=== PATIENT | male | born 1955 | race Caucasian/White ===

== ENCOUNTER 2016-10-19 05:54 | Observation (INO) | payer BC, SELFPAY ==
[~2016-10-19 05:54] MED LIST: ALEVE220 MG PO; ASA5GR PO; ASAB PO; ASABAYER PO; BACDS PO; BETAP120 PO; BION TEARS OPH; BRILINTA90 MG PO; COZ50 PO; GLUCOPHXR PO; GLUCPH PO; GLUCXL10 PO; HCTZ50B PO; HYDROCHLOROT50 MG PO; IMDUR30 PO; INTRAOCULAR EYE INJ IO; KDUR20 PO; KLOR-CON M2020 MEQ PO; L20 PO; LEVEMFLXPN SC; LIPITOR40 PO; LISINOPRIL40 MG PO; LOP100 PO; LOP50 PO; NITROBID2 % TOP; NITROQUICK0.4 MG; NITROSTAT0.4 MG SL; NORV5 PO; PLAVIX PO; PRAVACHOL40 MG PO; PRIN10 PO; SINEX NASAL SPRAY; X5 PO; ZOCOR40 PO
[2016-10-19 07:09] LABS: CALCIUM, SERUM 8.9 MG/DL (8.5-10.4); CHLORIDE, SERUM 106 MMOL/L (96-112); CO2 (CARBON DIOXIDE) 28 MMOL/L (24-34); CREATININE 0.81 MG/DL (0.70-1.30); GFR AFRICAN AMERICAN 111 ML/MIN (>=60); GFR NON AFRICAN AMERICAN 96 ML/MIN (>=60); GLUCOSE, SERUM 129 MG/DL (60-99); SODIUM, SERUM 142 MMOL/L (135-148)
[2016-10-19 07:10] LABS: BUN (BLOOD UREA NITROGEN) 12 MG/DL (6-23)
[2016-10-19 07:56] LABS: BASOPHILS 0.2 %; BASOPHILS ABSOLUTE 0.01 10/3/uL (0.0-0.16); EOSINOPHILS 5.6 %; EOSINOPHILS ABSOLUTE 0.35 10/3/uL (0.0-0.53); HEMATOCRIT 32.5 % (40.0-51.0); HEMOGLOBIN 10.8 g/dL (13.6-17.8); IMMATURE GRANULOCYTES 0.2 %; IMMATURE GRANULOCYTES ABSOLUTE 0.01 10/3/uL (0.0-0.11); LYMPHOCYTES 30.9 %; LYMPHOCYTES ABSOLUTE 1.92 10/3/uL (0.67-4.30); MEAN CORPUS HGB CONC 33.2 g/dL (32.0-36.0); MEAN PLATELET VOLUME 9.5 fL (9.2-13.0); MONOCYTES 14.5 %; NEUTROPHILS 48.6 %; NEUTROPHILS ABSOLUTE 3.02 10/3/uL (2.02-8.40); PLATELET COUNT 210 10/3/uL (150-400); RBC DISTRIBUTION WIDTH 14.4 % (12.0-16.0); RED CELL COUNT 3.73 10/6/uL (4.7-6.1); WHITE BLOOD CELLS 6.2 10/3/uL (4.5-10.5)
[2016-10-19 07:57] LABS: MANUAL DIFF NO %; MEAN CORPUSCULAR VOLUME 87.1 fL (80-100)
[2016-10-20] MEDS ORDERED: LOP25 PO (09:29)
== END 2016-10-20 09:55 | disposition home or self-care (01) ==
LOC: CORLMH 05:54 → SSU1 06:08
PROVIDERS: Internal Medicine Cardiovascular Disease
DX: I49.3 Ventricular premature depolarization (principal); I25.10 Atherosclerotic heart disease of native coronary artery without angina pectoris; E78.00 Pure hypercholesterolemia, unspecified; E11.51 Type 2 diabetes mellitus with diabetic peripheral angiopathy without gangrene; I48.0 Paroxysmal atrial fibrillation; Z95.1 Presence of aortocoronary bypass graft; Z82.49 Family history of ischemic heart disease and other diseases of the circulatory system; Z82.3 Family history of stroke; Z80.1 Family history of malignant neoplasm of trachea, bronchus and lung; Z87.891 Personal history of nicotine dependence; Z88.5 Allergy status to narcotic agent; Z88.8 Allergy status to other drugs, medicaments and biological substances; Z79.82 Long term (current) use of aspirin; Z79.02 Long term (current) use of antithrombotics/antiplatelets; Z79.899 Other long term (current) drug therapy
CPT/HCPCS: 80048; 82962; 85025; 85347; 93005; 93654; 96374; 96376; A9270-GY; C1732; C1769; C1781; C1894; G0378; J1170; J2720; J3010

== ENCOUNTER 2016-12-09 10:23 | Inpatient (IN) | payer BC ==
--- NOTE | ~2016-12-09 | CN ---
Consultation Report [facility] [address] [place]. [address] NAME: MO CARUSO JR : 53 STATUS : ADM Genoveva PAT#: [id number] AGE: 61 ADM/REG DATE : 12/09/16 MR#: [id number] REPORT SERV DATE: 12/09/16 DICTATED BY: JORGE KARIMI DATE: 12/09/16 REPORT STATUS : Draft TRANSCRIBED BY: BEA DATE: 12/09/16 CONSULTATION DATE OF CONSULTATION: 12/09/2016 REASON FOR CONSULTATION: Bradycardia. PRIMARY STEAM DISTRIBUTION SUPERVISOR: Ryan Huitron M.D., Ph.D, F.A.C.C. HISTORY OF PRESENT ILLNESS: Mr. Caruso is a pleasant, 61-year-old gentleman with an extensive cardiovascular history including coronary artery disease status post CABG (2008), peripheral vascular disease, status post right BKA in 2007, PAF status post ablation in 2008, diabetes, hypertension, and very frequent PVCs, status post recent PVC ablation by electrophysiology (10/19/2016), maintained on metoprolol up until last week , at which point in time sotalol 80 mg p.o. b.i.d. was added to his regimen. He states that over the past several days and most noticeably in the past day, he has developed significant dizziness as well as decreased energy and fatigue. He has noticed that his heart rate is low and he can feel it. He has been taking metoprolol with sotalol as per instructions EP office as of last week , reportedly in response to findings on a Holter monitor he recently completed following his 12/01/2016 visit in EP office. He otherwise does complain of atypical chest pains in the center of his chest. He recently had an angiogram on 07/2016 that showed patent grafts. He has no other complaints. PAST MEDICAL HISTORY: As above. SOCIAL HISTORY: The patient lives at home with his family. FAMILY HISTORY: Noncontributory for premature cardiovascular disease. ALLERGIES: 1. CHLORPROMAZINE. 2. DIAZEPAM. 3. MORPHINE. 4. CODEINE. HOME MEDICATIONS: 1. Tylenol. 2. Norvasc. 3. Refresh eye drops. 4. Aspirin. 5. Lipitor. 6. Plavix. 7. Glucotrol. 8. Imdur. Consultation Report [facility] [address] [place]. [address] NAME: MO CARUSO JR : 53 STATUS : ADM Genoveva PAT#: [id number] AGE: 61 ADM/REG DATE : 12/09/16 MR#: [id number] REPORT SERV DATE: 12/09/16 DICTATED BY: JORGE KARIMI DATE: 12/09/16 REPORT STATUS : Draft TRANSCRIBED BY: BEA DATE: 12/09/16 9. Lisinopril. 10.Metformin. 11.Lopressor. 12.Nitrostat p.r.n. 13.Sotalol. REVIEW OF SYSTEMS: As above, all other systems otherwise. PHYSICAL EXAMINATION: VITAL SIGNS: Blood pressure 156/80, pulse ranging from but currently in the 60s and in sinus rhythm with temperature 97.9. GENERAL: Well developed, well nourished, no acute distress. NEURO: Awake, alert and oriented x3; no focal deficits, appropriate mood. HEENT: Moist mucous membranes, anicteric sclerae, no nasal discharge. NECK: No JVD, no carotid bruit. LUNGS: Clear to auscultation bilaterally, no wheezes, rales or rhonchi. CV: Regular rate and rhythm, frequent ectopy, normal S1/S2, 2/6 systolic murmur at the left chest. No rubs or gallops. ABD: Soft, non-tender, non-distended, no rebound or guarding. EXT: No pitting edema, normal distal pulses. Status post right BKA, otherwise warm, dry, and no edema. SKIN: Warm, dry and intact; no rash. PERTINENT TEST FINDINGS: Admission EKG with sinus rhythm, ventricular bigeminy, nonspecific ST-T changes. Telemetry with sinus rhythm in the 60s with occasional PVCs. Creatinine 0.8, hemoglobin 10.2, troponin less than 0.02, potassium 4.1. IMPRESSION AND PLAN: Mr. Caruso is a pleasant 61-year-old man with the history as detailed above who presents with dizziness and fatigue in the setting of recent addition of sotalol 80 mg p.o. b.i.d. to his cardiovascular regimen resulting in sinus bradycardia. His heart rates has since improved, however, they are ranging up and down right now from the 40s up to 60s. I believe he is simply demonstrating intolerance to sotalol 80 mg p.o. b.i.d. in addition to the metoprolol 25 mg p.o. b.i.d. Therefore, I will discontinue metoprolol at this time with plans to resume sotalol at regular dose of 80 mg p.o. b.i.d. tomorrow morning so long as his heart rates are stable and above 70 beats per minute. With regard to his chest pains, his 1st set of enzymes are negative, he also had a recent angiogram that demonstrated no patent grafts. Further workup for this, given these findings, will be deferred pending changes in clinical status if any. TACOS/BEA Jorge Consultation Report [address] [place]. [address] NAME: TONIAMOAshwini SHIELDSRAQUEL : 53 STATUS : ADM Genoveva PAT#: [id number] AGE: 61 ADM/REG DATE : 12/09/16 MR#: [id number] REPORT SERV DATE: 12/09/16 DICTATED BY: JORGE KARIMI DATE: 12/09/16 REPORT STATUS : Draft TRANSCRIBED BY: BEA DATE: 12/09/16 MD Belén / [id number] CC: MD Moses Yi II, M.D.
--- NOTE | ~2016-12-09 | HP ---
History And Physical [place] [id number] [facility] [place]. [address] NAME: MO RANDALL JR : 53 STATUS : ADM Genoveva PAT#: [id number] AGE: 61 ADM/REG DATE : 12/09/16 MR#: [id number] REPORT SERV DATE: 12/09/16 DICTATED BY: HERLINDA MURILLO DATE: 12/09/16 REPORT STATUS : Draft TRANSCRIBED BY: MODRishi DATE: 12/09/16 DATE OF ADMISSION: 12/09/2016 CARDIOLOGY: Dr. Casey and Dr. Cabral. CHIEF COMPLAINT: Nausea and chest pain. HISTORY OF PRESENT ILLNESS: The patient is a very pleasant 61-year-old white male, who has a complicated past cardiac history. He has a history of CAD and CABG and then in 04/2016, he had a drug-eluting stent placed. He also has a history of pretty significant PVCs as many as 43 per cent of his beats. He actually underwent ablation procedure in September [address] Cabral. He was also placed on sotalol prior to that. After the ablation, the sotalol was stopped and he was continued on his metoprolol. He states over the last 24 hours, he has had a heart rate periodically in the 30s. He has had nausea with some gagging and he has had chest pain, substernally on the left. He actually went to Dr. Casey's office yesterday, had an EKG, in the first one, his heart rate was in the 30s; in the second, it was in his 50s. He was told to observe it overnight. He states he suffered all night with chest pain on the left side as well as nausea and his heart rate continued to be low. Finally today, he had a friend bring him to the emergency department after he had an ambulance check his heart rate and it was found to be 38. He has had no fevers or chills. He has had no actual emesis. He has gagged. He has not had any diarrhea or abdominal pain. PAST MEDICAL HISTORY: 1. CAD with history of CABG and drug-eluting stent. 2. Multiple PVCs, status post ablation in September. 3. Peripheral arterial disease with a right BKA and angioplasty. 4. Hypertension. 5. Type 2 diabetes. 6. Macular degeneration and blindness. 7. Paroxysmal atrial fibrillation. 8. Morbid obesity. 9. Hyperlipidemia. PAST SURGICAL HISTORY: He has had a 1. CABG procedure. 2. Maze procedure. 3. Right shoulder procedure. 4. Ablation. 5. Right BKA. SOCIAL HISTORY: He is . He has not smoked in 26 years. He does not drink any alcohol, and he is wheelchair bound but also uses a prosthetic. ALLERGIES: 1. CODEINE. 2. COMPAZINE. History And Physical [address] [address] NAME: MO RANDALL JR : 53 STATUS : ADM Genoveva PAT#: [id number] AGE: 61 ADM/REG DATE : 12/09/16 MR#: [id number] REPORT SERV DATE: 12/09/16 DICTATED BY: HERLINDA MURILLO DATE: 12/09/16 REPORT STATUS : Draft TRANSCRIBED BY: BEA DATE: 12/09/16 3. MORPHINE. 4. DIAZEPAM. 5. HYDROCODONE. FAMILY HISTORY: Positive for CAD. HOME MEDICATIONS: Reviewed and attached in the MAR. REVIEW OF SYSTEMS: Full 10-point review of systems obtained. Pertinent positives are mentioned in the HPI. PHYSICAL EXAMINATION: VITAL SIGNS: Current vital signs, blood pressure 134/71, pulse 56, sats are 100%, respiratory rate is 20, and temperature is 97.9. GENERAL: Well-developed white male. Overweight. HEENT: Normocephalic, atraumatic. Throat is clear. NECK: Supple. HEART: Bradycardic but no murmurs, rubs, or gallops. LUNGS: Grossly clear with good symmetrical air entry. ABDOMEN: Soft, nondistended, and nontender. Normoactive bowel sounds are noted. EXTREMITIES: Warm and dry. He has a right BKA. He has pulse in his left foot. SKIN: His skin is intact without obvious rash or lesion. NEUROLOGIC: He is alert. He is oriented to person, place, and time. He has symmetrical strength and tone in all four extremities. PSYCHIATRIC: His mood and affect are appropriate. LAB AND X-RAY: EKG shows sinus bradycardia and increased QTc. Chest x-ray shows low lung volumes and right basilar atelectasis. Urinalysis is benign. CT abdomen and pelvis is negative. BNP is 409. Basic metabolic panel, LFTs are all normal. Lipase is normal. CBC is relatively normal and has an H and H of 10 and 31, but that is about baseline for him. His coags are normal. ASSESSMENT/PLAN: 1. Bradycardia with associated chest pain. He has had multiple adjustments of medications. He has had an ablation procedure. He states sotalol was restarted last week after he had a Holter done as an outpatient which I do not have the results of. This was started at 80 p.o. b.i.d. in addition to his metoprolol. Now he is here with bradycardia, nausea, and chest pain with a heart rate in the 30s at times. I think really this management needs to be deferred to Cardiology since they have been managing it thus far and he was just seen in their office yesterday. I am going to hold his beta mart. We will let them determine whether or not they want to continue the sotalol. We will give him a liter of fluids. He looks stable now. His heart rate is in the 50s. His blood pressure is fine. I am going to do two more sets of enzymes and go from there. 2. Chest pain. No EKG changes. First set of troponin is negative. He has had pain for now 12 hours. I am going to place him on a heparin drip overnight, check two more sets of enzymes, and again Cardiology is going to see him. History And Physical [address] [place]. [address] NAME: MO RANDALL : 53 STATUS : ADM Genoveva PAT#: [id number] AGE: 61 ADM/REG DATE : 12/09/16 MR#: [id number] REPORT SERV DATE: 12/09/16 DICTATED BY: HERLINDA MURILLO DATE: 12/09/16 REPORT STATUS : Draft TRANSCRIBED BY: MODL DATE: 12/09/16 3. History of diabetes. We will add sliding scale to his regimen. 4. History of PAD, status post right BKA. 5. History of prolific PVCs. Please see #1 and #2. 6. Hypertension. Continue home medications. 7. Macular degeneration and blindness. 8. Deep venous thrombosis prophylaxis. He is going to be anticoagulated fully. 9. Disposition pending above. STEPHANIE/BEA Herlinda Murillo M.D. / [id number] CC: MD Moses Yi II, M.D. Gregory Keith Bruce, M.D. Brian Mitchell, M.D.
--- NOTE | ~2016-12-09 | DS ---
Discharge Summary [facility] [address] [place]. [address] NAME: MO RANDALL JR : 53 STATUS : DIS IN PAT#: [id number] AGE: 61 ADM/REG DATE : 12/09/16 MR#: [id number] REPORT SERV DATE: 12/12/16 DICTATED BY: SIRISHA ARVIZU II DATE: 12/11/16 REPORT STATUS : Draft TRANSCRIBED BY: MODRishi DATE: 12/11/16 ADMISSION DATE: 12/09/2016 DISCHARGE DATE: 12/11/2016 DISCHARGE DIAGNOSES: 1. Sinus bradycardia secondary to medications. 2. Atypical chest pain with no evidence of ischemia. 3. History of paroxysmal atrial fibrillation and premature ventricular contractions status post recent ablation, on sotalol. 4. Coronary artery disease with history of CABG and SAYRA. 5. Peripheral artery disease with a right BKA. 6. Hypertension. 7. Diabetes mellitus type 2. 8. Obesity. CONSULT: Dr. Huitron with [facility]. BRIEF HISTORY OF PRESENT ILLNESS: The patient is a 61-year-old male with the above history, who presented to [facility] due to nausea, chest pain, and fatigue. He was found to be bradycardic and subsequently admitted. For detailed history and physical examination, please see Dr. Murillo' note from 12/09/2016. HOSPITAL COURSE: On admission, the patient's heart rate was in the 30s and 40s and his sotalol and metoprolol were held. Cardiology was consulted and initially given his chest pain and history, he was started on heparin drip, though his EKG and cardiac enzymes have all been unremarkable for ischemia. Cardiology did not think he had any evidence of angina and held his Lopressor and sotalol. Currently, his sotalol is being restarted and he seems to be tolerating it. He still has some mild sinus bradycardia in the 50s and 60s, and Cardiology recommended continuing this and following up as an outpatient. At this point, the patient is stable and ready for discharge according to Cardiology. DISCHARGE MEDICATIONS: 1. Norvasc 5 mg p.o. daily. 2. Artificial tears p.r.n. 3. Aspirin 81 mg p.o. daily. 4. Lipitor 40 mg p.o. q.h.s. 5. Plavix 75 mg p.o. daily. 6. Glucotrol 10 mg p.o. daily. 7. Imdur 30 mg p.o. daily. 8. Prinivil 40 mg p.o. daily. 9. Betapace 80 mg p.o. b.i.d. 10.Metformin 500 mg p.o. q.12 hours. 11.Nitrostat p.r.n. 12.Tylenol p.r.n. DISCHARGE INSTRUCTIONS: The patient will follow up with his PCP, Dr. Moses Montenegro on Discharge Summary [address] [place]. [address] NAME: MO RANDALL JR : 53 STATUS : DIS IN PAT#: [id number] AGE: 61 ADM/REG DATE : 12/09/16 MR#: [id number] REPORT SERV DATE: 12/12/16 DICTATED BY: SIRISHA ARVIZU II DATE: 12/11/16 REPORT STATUS : Draft TRANSCRIBED BY: BEA DATE: 12/11/16 12/14/2016 as scheduled. Otherwise, he will see Dr. Cabral in clinic as scheduled. DICTATED BY: MD LEO Yi II/BEA Sirisha Arvizu II, MD / [id number] CC: MD Moses Yi II, M.D.
[2016-12-09 09:31] LABS: BASOPHILS 0.1 %; BASOPHILS ABSOLUTE 0.01 10/3/uL (0.0-0.16); EOSINOPHILS 3.9 %; EOSINOPHILS ABSOLUTE 0.31 10/3/uL (0.0-0.53); ER CBC TAT 0 Hrs 03 Mins; HEMATOCRIT 31.2 % (40.0-51.0); HEMOGLOBIN 10.2 g/dL (13.6-17.8); IMMATURE GRANULOCYTES 0.1 %; IMMATURE GRANULOCYTES ABSOLUTE 0.01 10/3/uL (0.0-0.11); LYMPHOCYTES 20.8 %; LYMPHOCYTES ABSOLUTE 1.65 10/3/uL (0.67-4.30); MEAN CORPUS HGB CONC 32.7 g/dL (32.0-36.0); MEAN CORPUSCULAR HEMOGLOB 28.3 pg (26.0-34.0); MEAN CORPUSCULAR VOLUME 86.7 fL (80-100); MEAN PLATELET VOLUME 9.8 fL (9.2-13.0); MONOCYTES 9.4 %; MONOCYTES ABSOLUTE 0.75 10/3/uL (0.21-1.20); NEUTROPHILS 65.7 %; NEUTROPHILS ABSOLUTE 5.22 10/3/uL (2.02-8.40); PLATELET COUNT 185 10/3/uL (150-400); RBC DISTRIBUTION WIDTH 14.3 % (12.0-16.0)
[2016-12-09 09:32] LABS: MANUAL DIFF NO %
[2016-12-09 09:39] LABS: INTERNATIONAL NORMAL RATI 1.2 UNITS (-); PARTIAL THROMBO TIME 29.2 SEC (22.5-37.2); PROTIME (NOT ORD) 14.9 SEC (12.0-14.5)
[2016-12-09 09:48] LABS: BUN (BLOOD UREA NITROGEN) 18 MG/DL (6-23); CALCIUM, SERUM 8.9 MG/DL (8.5-10.4); CHEST PAIN PROFILE TAT 0 Hrs 20 Mins; CHLORIDE, SERUM 106 MMOL/L (96-112); CO2 (CARBON DIOXIDE) 26 MMOL/L (24-34); GFR AFRICAN AMERICAN 111 ML/MIN (>=60); GFR NON AFRICAN AMERICAN 96 ML/MIN (>=60); GLUCOSE, SERUM 63 MG/DL (60-99); POTASSIUM, SERUM 4.1 MMOL/L (3.5-5.3); SODIUM, SERUM 141 MMOL/L (135-148); TROPONIN I <0.02 NG/ML (<0.05)
[~2016-12-09 10:23] MED LIST changes: +LOP25 PO
[2016-12-09 10:25] LABS: ALBUMIN 3.5 G/DL (3.5-5.0); DIRECT BILIRUBIN 0.1 MG/DL (0.0-0.4); INDIRECT BILIRUBIN(NOT ORDER) 0.3 MG/DL (0.1-0.9); SGOT(AST) 16 U/L (5-40); SGPT(ALT) 18 U/L (5-65); TOTAL BILIRUBIN 0.4 MG/DL (0-1.2); TOTAL PROTEIN 6.6 G/DL (6.0-8.5)
[2016-12-09 10:26] LABS: ALKALINE PHOSPHATASE 63 U/L (45-117)
[2016-12-09 12:38] LABS: ASCORBIC ACID (UR NOT ORDER) NEG (NEG); BILIRUBIN, URINE NEGATIVE (NEG); ER URINALYSIS TAT 0 Hrs 10 Mins; KETONE, URINE NEGATIVE (NEG); LEUKOCYTE ESTERASE(NOT OR NEG (NEG); NITRITE (URINE) NEG (NEG); WBC (NOT ORDERED) (RFLEX) 1 (0-5)
[2016-12-09] MEDS ORDERED: ASAB PO (14:13)
[2016-12-09] MEDS ORDERED: NORV5 PO (14:13)
[2016-12-09] MEDS ORDERED: LIPITOR40 PO (14:14)
[2016-12-09] MEDS ORDERED: PLAVIX PO (14:15)
[2016-12-09] MEDS ORDERED: IMDUR30 PO (14:15)
[2016-12-09] MEDS ORDERED: GLUCXL10 PO (14:15)
[2016-12-09] MEDS ORDERED: LISINOPRIL40 MG PO (14:16)
[2016-12-09] MEDS ORDERED: GLUCPH PO (14:16)
[2016-12-09] MEDS ORDERED: BETAPACE80 PO (14:18)
[2016-12-09] MEDS ORDERED: LOP25 PO (14:18)
[2016-12-09] MEDS ORDERED: NITROSTAT0.4 MG SL (14:22)
[2016-12-09] MEDS ORDERED: T PO (14:24)
[2016-12-09] MEDS ORDERED: STOOL SOFTENER OTC PO (14:25)
[2016-12-09] MEDS ORDERED: REFRESH OPH (14:26)
[2016-12-10 01:30] LABS: BASOPHILS 0 %; EOSINOPHILS 0 %; HEMATOCRIT 29.5 % (40.0-51.0); HEMOGLOBIN 9.7 g/dL (13.6-17.8); IMMATURE GRANULOCYTES 0.2 %; IMMATURE GRANULOCYTES ABSOLUTE 0.01 10/3/uL (0.0-0.11); LYMPHOCYTES 13.7 %; LYMPHOCYTES ABSOLUTE 0.66 10/3/uL (0.67-4.30); MANUAL DIFF NO %; MEAN CORPUS HGB CONC 32.9 g/dL (32.0-36.0); MEAN CORPUSCULAR HEMOGLOB 28.4 pg (26.0-34.0); MEAN CORPUSCULAR VOLUME 86.5 fL (80-100); MEAN PLATELET VOLUME 9.4 fL (9.2-13.0); MONOCYTES 2.7 %; MONOCYTES ABSOLUTE 0.13 10/3/uL (0.21-1.20); NEUTROPHILS 83.4 %; NEUTROPHILS ABSOLUTE 4.01 10/3/uL (2.02-8.40); PLATELET COUNT 148 10/3/uL (150-400); RBC DISTRIBUTION WIDTH 14.1 % (12.0-16.0); RED CELL COUNT 3.41 10/6/uL (4.7-6.1); WHITE BLOOD CELLS 4.8 10/3/uL (4.5-10.5)
[2016-12-10 01:45] LABS: BUN (BLOOD UREA NITROGEN) 21 MG/DL (6-23); CALCIUM, SERUM 8.2 MG/DL (8.5-10.4); CHLORIDE, SERUM 105 MMOL/L (96-112); CO2 (CARBON DIOXIDE) 27 MMOL/L (24-34); CREATININE 1.06 MG/DL (0.70-1.30); GFR AFRICAN AMERICAN 87 ML/MIN (>=60); GFR NON AFRICAN AMERICAN 75 ML/MIN (>=60); GLUCOSE, SERUM 198 MG/DL (60-99); POTASSIUM, SERUM 4.5 MMOL/L (3.5-5.3); SODIUM, SERUM 138 MMOL/L (135-148); TROPONIN I <0.02 NG/ML (<0.05)
== END 2016-12-11 14:39 | disposition home or self-care (01) | DRG 310 ==
LOC: ER 10:23 → 7NO 14:43
PROVIDERS: Emergency Medicine; Internal Medicine
DX: R00.1 Bradycardia, unspecified (principal); Z95.1 Presence of aortocoronary bypass graft; E66.01 Morbid (severe) obesity due to excess calories; I10 Essential (primary) hypertension; I25.10 Atherosclerotic heart disease of native coronary artery without angina pectoris; Z95.5 Presence of coronary angioplasty implant and graft; E11.9 Type 2 diabetes mellitus without complications; E78.5 Hyperlipidemia, unspecified; I48.0 Paroxysmal atrial fibrillation; Z89.511 Acquired absence of right leg below knee; Z79.82 Long term (current) use of aspirin; Z79.02 Long term (current) use of antithrombotics/antiplatelets; Z79.84 Long term (current) use of oral hypoglycemic drugs; T44.7X5A Adverse effect of beta-adrenoreceptor antagonists, initial encounter; R07.89 Other chest pain; Z68.31 Body mass index [BMI] 31.0-31.9, adult
CPT/HCPCS: 71010; 74176; 80048; 80076; 81001; 82962; 83690; 83735; 83880; 84484; 85025; 85610; 85730; 93005; 96374; 99291; A9270-GY; J1170; J2405; J2550; J2930